=== PATIENT | male | born 1995 | race Caucasian/White ===

== ENCOUNTER 2017-09-09 20:12 | Emergency (ER) | payer SELFPAY ==
--- NOTE | 2017-09-09 21:48 | RAD ---
RIGHT KNEE THREE VIEWS: 09/09/17 HISTORY: 22-year-old male with history of right knee pain following an injury. There is some artifact overlying the knee. There is distention of the suprapatellar recess, evidence for abnormal joint effusion. No acute fracture or dislocation. IMPRESSION: Evidence for abnormal joint effusion with distention of the suprapatellar recess. This is certainly c oncerning for the possibility of nonosseous injury. Consider nonemergent followup knee MRI for furthe r assessment. No acute fracture or dislocation. POS: [facility]
== END 2017-09-09 23:09 | disposition home or self-care (01) ==
LOC: ERS 20:12
DX: S83.91XA Sprain of unspecified site of right knee, initial encounter (principal); F17.210 Nicotine dependence, cigarettes, uncomplicated; V89.2XXA Person injured in unspecified motor-vehicle accident, traffic, initial encounter

== ENCOUNTER 2018-02-27 19:43 | Emergency (ER) | payer SELFPAY ==
[~2018-02-27 19:43] MED LIST: ISOVUE-370 76%-LOCM 1 ML ONE
[2018-02-27] MEDS ORDERED: Adacel (T-DAP) 0.5 ML VIAL ONE (19:59)
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
[2018-02-27 20:27] LABS: #Lymphocytes 2.2 thou/uL (1.20-3.40); #Monocytes 0.7 thou/uL (0.11-0.59); #Neutrophils 8.6 thou/uL (1.40-6.50); %Basophils 0.1 % (0.0-1.0); %Eosinophils 0.4 % (0.0-10.0); %Monocytes 5.9 % (0.0-10.0); %Neutrophils 74.6 % (42.0-75.0); Hemoglobin 15.1 g/dL (14.0-18.0); Mean Corpuscular HGB CONC 32.5 g/dL (32.0-36.0); Mean Corpuscular Hemoglobin 28.2 pg (27.0-31.0); Mean Corpuscular Volume 86.8 fL (78.0-98.0); Mean Platelet Volume 7.4 fL (7.4-10.4); Platelet Count 262 thou/uL (130-400); RBC Distribution Width 11.5 % (11.5-14.5); Red Blood Cell (RBC) Count 5.34 mill/uL (4.70-6.10); White Blood Cell (WBC) Count 11.5 thou/uL (4.8-10.8)
[2018-02-27 20:48] LABS: ALT (SGPT) 21 U/L (8-55); AST (SGOT) 24 U/L (5-34); Albumin 4.8 g/dL (3.5-5.0); Alkaline Phosphatase 73 U/L (40-150); Anion Gap 14 mmol/L (10-20); BUN (Urea Nitrogen) 16 mg/dL (8.9-20.6); Calc. Creatinine Clearance 0 mL/min (70-130); Calcium 9.9 mg/dL (7.8-10.44); Carbon Dioxide 24 mmol/L (22-29); Chloride 104 mmol/L (98-107); Estimated GFR-MDRD 76; Globulin 3.1 g/dL (2.4-3.5); Glucose 86 mg/dL (70-105); Lipase 14 U/L (8-78); Potassium 3.9 mmol/L (3.5-5.1); Protein, Total 7.9 g/dL (6.0-8.3); Sodium 138 mmol/L (136-145)
--- NOTE | 2018-02-27 21:24 | RAD ---
RIGHT FOREARM TWO VIEWS: 02/27/18 HISTORY: Injury to forearm, fall. There is no signs of fracture or dislocation. IMPRESSION: Negative right forearm. POS: [facility]
[2018-02-27] MEDS ORDERED: Ketorolac Tromethamine 30 MG/ML VIAL ONE (21:41)
[2018-02-27] MEDS ORDERED: Bacitracin Zinc 1 Packet ONE (21:46)
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
== END 2018-02-27 22:21 | disposition home or self-care (01) ==
LOC: ERS 19:43
DX: S62.621A Displaced fracture of middle phalanx of left index finger, initial encounter for closed fracture (principal); S50.811A Abrasion of right forearm, initial encounter; Z23 Encounter for immunization; V29.9XXA Motorcycle rider (driver) (passenger) injured in unspecified traffic accident, initial encounter
CPT/HCPCS: 74177; 80053; 83690; 85025; 86850; 86900; 86901; 90471; 90715; 94760; 96374; J1885

== ENCOUNTER 2018-07-20 19:31 | Emergency (ER) | payer SELFPAY ==
[2018-07-20 23:06] LABS: #Basophils 0.1 thou/uL (0.0-0.2); #Eosinphils 0.2 thou/uL (0.0-0.7); #Lymphocytes 4.1 thou/uL (1.20-3.40); #Monocytes 0.5 thou/uL (0.11-0.59); #Neutrophils 4.9 thou/uL (1.40-6.50); %Basophils 0.6 % (0.0-1.0); %Eosinophils 1.7 % (0.0-10.0); %Lymphocytes 42.3 % (21.0-51.0); %Monocytes 4.7 % (0.0-10.0); %Neutrophils 50.7 % (42.0-75.0); Hemoglobin 15.1 g/dL (14.0-18.0); Mean Corpuscular HGB CONC 31.8 g/dL (32.0-36.0); Mean Corpuscular Hemoglobin 28.4 pg (27.0-31.0); Mean Corpuscular Volume 89.4 fL (78.0-98.0); Mean Platelet Volume 6.9 fL (7.4-10.4); Platelet Count 302 thou/uL (130-400); RBC Distribution Width 12.2 % (11.5-14.5); Red Blood Cell (RBC) Count 5.32 mill/uL (4.70-6.10); White Blood Cell (WBC) Count 9.7 thou/uL (4.8-10.8)
[2018-07-20 23:27] LABS: ALT (SGPT) 26 U/L (8-55); AST (SGOT) 23 U/L (5-34); Albumin 4.4 g/dL (3.5-5.0); Alkaline Phosphatase 61 U/L (40-150); Anion Gap 13 mmol/L (10-20); BUN (Urea Nitrogen) 9 mg/dL (8.9-20.6); Bilirubin, Total 0.7 mg/dL (0.2-1.2); Calc. Creatinine Clearance 0 mL/min (70-130); Calcium 9.8 mg/dL (7.8-10.44); Carbon Dioxide 24 mmol/L (22-29); Chloride 107 mmol/L (98-107); Estimated GFR-MDRD Greater than 90; Globulin 2.6 g/dL (2.4-3.5); Glucose 88 mg/dL (70-105); Potassium 3.9 mmol/L (3.5-5.1); Sodium 140 mmol/L (136-145)
[2018-07-20 23:31] LABS: Bilirubin Negative (Negative); Blood, Urine Negative (Negative); Clarity CLEAR (Clear); Glucose, Urine (Dipstick) Negative (Negative); Leukocyte Negative (Negative); Nitrite Negative (Negative); Protein, Urine (Dipstick) Negative (Neg-Trace); Specific Gravity, Urine 1.012 (1.002-1.036); Urobilinogen 0.2 mg/dL (0.2-1.0)
== END 2018-07-21 00:30 | disposition home or self-care (01) ==
LOC: ERS 19:31
DX: R42 Dizziness and giddiness (principal); Z71.6 Tobacco abuse counseling; F17.210 Nicotine dependence, cigarettes, uncomplicated
CPT/HCPCS: 36415; 80053; 81003; 85025; 93005; 99406